=== PATIENT | male | born 1995 | race African-American/Black ===

== ENCOUNTER 2021-07-08 02:26 | Emergency (ER) | payer SELFPAY ==
[~2021-07-08] VITALS: Ht 172.7 cm; Wt 66.0 kg
[2021-07-08 02:31] VITALS: BP 110/60
== END 2021-07-08 05:07 | disposition left against medical advice (07) ==
LOC: ER 02:49
DX: Z53.21 Procedure and treatment not carried out due to patient leaving prior to being seen by health care provider (principal)
CPT/HCPCS: 93005